=== PATIENT | male | born 1940 | race Caucasian/White ===

== ENCOUNTER 2019-04-26 16:22 | Observation (INO) | payer OTHER, MEDICARE ==
[2019-04-26] MEDS ORDERED: Ticagrelor 90 MG Tab PO ONE (16:24)
[2019-04-26] MEDS ORDERED: Famotidine 20 MG/2 ML SDV IVPUSH ONE (16:24)
[2019-04-26] MEDS ORDERED: Aspirin 81 MG Tab.Chew CHEW ONE (16:24)
--- NOTE | 2019-04-26 16:24 | EDM.PDOC ---
ED HPI GENERAL MEDICAL PROBLEM - General Chief Complaint: Respiratory Problem Stated Complaint: shortness of breath Time Seen by Provider: 04/26/19 16:24 Source of Information: Reports: Patient, Family (), Old Records ([facility] chart/EMR), Other ([facility] EMR) History Limitations: Reports: No Limitations - History of Present Illness INITIAL COMMENTS - FREE TEXT/NARRATIVE: The patient was brought to the emergency room via private automobile by his for evaluation of sudden onset dyspareunia, increasing dependent edema, and dizziness with symptoms starting about one hour prior to arrival. Note that the patient has had some recent problems with bradycardia with decrease of his Lopressor and losartan therapy by his regular provider about 4 days ago. The patient denies any chest pain/pressure, heart flutter, orthostasis, orthopnea, diaphoresis, paresthesias, recent decreased exercise tolerance, or any other anginal-type symptoms. No recent history of abdominal pain, heartburn, nausea, diarrhea, melena, gross hematochezia, or any food intolerance, including fatty foods, etc.. He denies any gross hematuria, colic, or other UTI symptoms. The patient also denies any recent fever, cough, wheezing, dyspnea, etc.. He denies any specific pain or discomfort. Onset: Today, Sudden Onset Date: 04/26/19 Onset Time: 15:00 Duration: Constant Location: Reports: Other (no pain) Quality: Reports: Same as Previous Episode Severity: Moderate Improves with: Reports: Rest Worsens with: Reports: Movement (activity) Context: Denies: Trauma Associated Symptoms: Reports: Shortness of Breath. 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 below) (none) - Related Data Allergies Allergy/AdvReac Type Severity Reaction Status Date / Time metronidazole [From Flagyl] Allergy Delusions Verified 04/26/19 16:46 Home Meds: Home Meds Rosuvastatin [Crestor] 10 mg PO BEDTIME 07/20/15 [History] Terazosin HCl [Terazosin] 5 mg PO BEDTIME 07/20/15 [History] amLODIPine [Norvasc] 10 mg PO DAILY 02/25/16 [History] Aspirin [Halfprin] 81 mg PO DAILY 04/26/19 [History] Cholecalciferol (Vitamin D3) [Vitamin D3] 1,000 units PO BEDTIME 04/26/19 [ History] Gabapentin [Neurontin] 300 mg PO BEDTIME 04/26/19 [History] LORazepam [Ativan] 1 mg PO Q12HR PRN 04/26/19 [History] Losartan [Cozaar] 1 tab PO DAILY 04/26/19 [History] Metoprolol Succinate [Toprol Xl] 50 mg PO DAILY 04/26/19 [History] Past Medical History HEENT History: Reports: Cataract, Hard of Hearing, Impaired Vision, Otitis Media , Other (See Below). Denies: Allergic Rhinitis, Glaucoma, Macular Degeneration , Retinal Detachment Other HEENT History: frequent ear infections as a child with no PE tubes required. Chronic vertigo. Presbycusis with bilateral hearing aid therapy. He wears glasses. senile nuclear sclerosis. Cardiovascular History: Reports: Arrhythmia, Blood Clots/VTE/DVT, Cardiomyopathy , Heart Failure, Heart Murmur, High Cholesterol, Hypertension, PVD, Other (See Below). Denies: Afib, Aneurysm, Bypass, CAD, HI, Pacemaker, PTCA, Syncope Other Cardiovascular History: grade 1 diastolic dysfunction with mild left atrial enlargement and minimal diffuse disease; History of rheumatic fever at age 13 with previous cardiac murmur, which has since resolved. First-degree AV block, sinus arrhythmia,complete right bundle branch block, PACs, PVCs, and quadrigeminy. Carotid occlusive disease requiring surgery as below. distant history of DVT of the left subclavian vein in the 1970s secondary to a PICC line at that time. Respiratory History: Reports: Bronchitis, Recurrent, COPD, Intubation, Previous , Pulmonary Fibrosis. Denies: Asthma, Intubation, Difficult, PE, Pneumothorax, Sleep Apnea, TB Gastrointestinal History: Reports: Cholelithiasis, Colon Polyp, Diverticulosis, GERD, Irritable Bowel Syndrome, Other (See Below). Denies: Celiac Disease, Chronic Constipation, Chronic Diarrhea, GI Bleed, Hepatitis, Hiatal Hernia, Inflammatory Bowel Disease, Jaundice, Pancreatitis, PUD Other Gastrointestinal History: fatty liver secondary to hyperlipidemia. Genitourinary History: Reports: BPH, Chronic Renal Insuffiency, Other (See Below ). 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 Erectile dysfunction. Hermatospermia. renal cysts. Musculoskeletal History: Reports: Arthritis, Back Pain, Chronic, Fracture, Gout , Neck Pain, Chronic, Osteoarthritis, Other (See Below). Denies: Fibromyalgia, Osteoporosis, RA, SLE Other Musculoskeletal History: Genu varum. L5 compression fracture. Neurological History: Reports: Neuropathy, Peripheral, Vertigo, Other (See Below ). Denies: Cerebral Aneurysms, Concussion, CVA, Head Trauma, Migraines, MS, Parkinson's, Seizure, TIA Other Neuro History: polyneuropathy and radiculopathy initially diagnosed on 21/01. He denies previous history of TIA despite our medical records. Psychiatric History: Reports: Anxiety, Depression. Denies: Abuse, Victim of, ADD, ADHD, Addiction, Alzheimers Disease, Dementia, Psych Hospitalization(s), PTSD, Suicide Attempt, Suicidal Ideation Endocrine/Metabolic History: Reports: Obesity/BMI 30+, Vitamin D Deficiency. Denies: Diabetes, Type I, Diabetes, Type II, Diabetes Mellitus, Type 3c, Hypothyroidism, IDDM Hematologic History: Denies: Anemia, Blood Transfusion(s), Iron Deficiency Immunologic History: Denies: AIDS, HIV, SLE Oncologic (Cancer) History: Reports: Basal Cell Carcinoma, Renal, Other (See Below). Denies: Colon, Hodgkin's Lymphoma, Lymphoma, Malignant Melanoma, Non- Hodgkin's Lymphoma, Prostate Other Oncologic History: Basal cell carcinoma excised from the left chin on 07/11 with additional multiple skin excisions as below of unknown type of skin cancer. Right-sided renal cancer with nephrectomy as below and no chemotherapy or radiation therapy required Dermatologic History: Reports: Other (See Below). Denies: Eczema, Psoriasis Other Dermatologic History: Skin cancer as above. - Infectious Disease History Infectious Disease History: Reports: Chicken Pox, Mumps, Rheumatic Fever (at age 13), Scarlet Fever. Denies: C-Difficile, Meningitis, Mononucleosis, MRSA, Pertussis (Whooping Cough), Rubella, Shingles, TB, VRE - Past Surgical History Head Surgeries/Procedures: Reports: None HEENT Surgical History: Reports: Adenoidectomy, Oral Surgery, Tonsillectomy, Other (See Below). Denies: Cataract Surgery, Eye Surgery, Laser Surgery, LASIK , Myringotomy w Tube(s), Naso-Sinus Surgery Other HEENT Surgeries/Procedures: tonsillectomy and adenoidectomy at age 17. [place] teeth extraction4 at age 61. Cardiovascular Surgical History: Reports: Carotid Endarterectomy, Other (See Below). Denies: Varicose Other Cardiovascular Surgeries/Procedures: left carotid endarterectomy on 1999. Respiratory Surgical History: Reports: None. Denies: Thoracentesis GI Surgical History: Reports: Appendectomy, Cholecystectomy, Colon, Colonoscopy , Hernia, Abdominal, Hernia Repair/Other, Polypectomy, Other (See Below). Denies: EGD Other GI Surgeries/Procedures: last colonoscopy on 08/10/17 with excision of 3 polyps from the transverse colon at that time. Previous colonoscopy on 04/10/03; ventral abdominal hernia/incisional hernia repair in the . Left hemicolectomy in the early secondary to diverticulosis with excision of multiple colonic polyps. Previous cholecystectomy in the . Extensive central abdominal hernia repair on 11/02/03. Appendectomy at age 19. patient denies previous EGD in spite of our medical records. Male Surgical History: Reports: Other (See Below). Denies: Circumcision, TURP-Transurethral Resection of Prostate, Vasectomy Other Male Surgeries/Procedures: Cystoscopy on 05/06/11. Right-sided nephrectomy secondary to renal cancer on 03/31/16. Endocrine Surgical History: Reports: None Neurological Surgical History: Reports: None. Denies: C-Spine, Discectomy, Laminectomy, Lumbar Spine, Sacral Spine, Spinal Fusion, Thoracic Spine, Vertebroplasty Musculoskeletal Surgical History: Reports: Arthroscopic Knee, Other (See Below) . Denies: Carpal Tunnel, Ganglion Cyst, Joint Replacement, ORIF, Shoulder Surgery Other Musculoskeletal Surgeries/Procedures:: Left knee arthroscopic evaluation in 1999. Oncologic Surgical History: Reports: None Dermatological Surgical History: Reports: Skin Biopsy, Other (See Below) Other Dermatological Surgeries/Procedures: Mohs procedure from the facial region on 06/03/17 and multiple skin incisions between February and May 2017. Additional excision of basal cell carcinoma as above. - Past Imaging History Past Imaging History: Reports: Angiography (possible carotid angiogram on 1999. Heart catheterization in 1982.), Cardiac Echo (08/05/15 with ejection fraction of 6065 percent and findings as above.), CAT Scan (CT of the abdomen and pelvis on multiple occasions with last evaluation on 09/26/18. CT of the head and C-spine on 05/19/16. CT of the chest on 03/03/16.), Holter Monitor (April 2019), MRI (lumbar region on 01/26/03.), PFT (10/10/03), Stress Testing (last Cardiolite stress test on 09/09/15 was negative with ejection fraction of 59%. Previous Cardiolite stress test on 01/25/04 with decreased ejection fraction of 46 %.), Ultrasound (renal ultrasound on 08/14/08 and 05/25/07. abdominal ultrasound on 03/13/03.), Other (See Below) (arterial Doppler studies of the lower extremities on 01/26/03. EMG and nerve conduction studies of the legs bilaterally on 03/23/03.) Social & Family History - Family History HEENT: Reports: None. Denies: Glaucoma, Macular Degeneration, Retinal Detachment Cardiac: Reports: Bypass, CAD, High Cholesterol, HI, Other (See Below). Denies : Afib, Arrhythmia, Blood Clots/VTE/DVT, Heart Failure, Heart Murmur, Hypertension, Pacemaker, PVD/COD Other Cardiac Family History: father with fatal HI at age 74. Paternal uncle with possible fatal HI in his 80s. Maternal uncles 2 with possible fatal MIs in her 70s.hyperlipidemia and daughter and father. Brother with HI in his 70s with four-vessel CABG Respiratory: Denies: Asthma, COPD, PE, Pneumothorax, Sleep Apnea GI: Reports: Other (See Below). Denies: Celiac Disease, Colon Polyps, GERD, GI bleed, Inflammatory Bowel Disease, Irritable Bowel Syndrome, PUD Other GI Family History: daughter at 8 days of age secondary to transposition of her internal organs. : Reports: None. Denies: Dialysis, Renal Calculus, Renal Disease/ Insufficiency Musculoskeletal: Reports: None. Denies: Arthritis, Gout, RA, SLE Neurological: Reports: Parkinson's. Denies: Alzheimers Disease, Cerebral Aneurysms, CVA, Dementia, Migraines, Neuropathy, Peripheral, Seizure, TIA, Vertigo, Other (See Below) Other Neurological Family History: brother with Parkinson's disease Endocrine/Metabolic: Reports: Diabetes, type II, Other (See Below) Other Endocrine/Metabolic Family History: maternal grandmother with IDDM. Oncologic: Reports: Breast, Other (See Below) Other Oncologic Family History: mother with fatal breast versus stomach cancer at age 69. Sister with the Alia cancer in her 60s fatal at age 65. - Tobacco Use Smoking Status *Q: Former Smoker Tobacco Use Within Last Twelve Months: No Years of Tobacco use: 39 Packs/Tins Daily: 1.5 Packs/Tins Daily Comment: smoked between ages 20 and 59 with maximum use of 2 packs per day. Used Tobacco, but Quit: Yes Smoking Cessation Information Provided To Patient: No Second Hand Smoke Exposure: No Second Hand Smoke Education Provided: No - Caffeine Use Caffeine Use: Reports: Soda (1 soda per day). Denies: Coffee, Energy Drinks, Tea - Alcohol Use Alcohol Use History: Yes Days Per Week of Alcohol Use: 5 Number of Drinks Per Day: 3 Number of Drinks Per Day Comment: usually beer. No previous DWIs, problems with alcohol abuse, etc. Total Drinks Per Week: 15 Alcohol Use in Last Twelve Months: Yes - Recreational Drug Use Recreational Drug Use: No Drug Use in Last 12 Months: No Recreational Drug Type: Denies: Amphetamines (Speed), Cocaine, Heroin, Inhalants (Glues, Solvents, Aerosols), LSD (Acid), Marijuana/Hashish, Methamphetamine, Morphine, Oxycodone - Living Situation & Occupation Living situation: Reports: (1960. 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 ED EXAM, GENERAL - Physical Exam Exam: See Below Exam Limited By: No Limitations General Appearance: Alert, WD/WN, No Apparent Distress, Anxious (mild to moderate) Eye Exam: Bilateral Eye: EOMI, Normal Fundi, Normal Inspection (no nystagmus. Patient does not have his glasses.), PERRL Ears: Normal External Exam, Normal TMs, Hearing Loss (moderate bilateral presbycusis with patient not having his hearing aids). No: Hearing Grossly Normal Nose: Normal Inspection, Normal Mucosa, No Blood Throat/Mouth: Normal Inspection, Normal Lips, Normal Teeth, Normal Gums, Normal Oropharynx, Normal Voice, No Airway Compromise. No: Dysphagia, Perioral Cyanosis Head: Atraumatic, Normocephalic. No: Facial Swelling, Facial Tenderness Neck: Supple, Non-Tender, Full Range of Motion, Carotid Bruit (left-sided neck scar from carotid endarterectomy with mild bilateral carotid bruits). No: Lymphadenopathy (L), Lymphadenopathy (R), Thyromegaly Respiratory/Chest: No Respiratory Distress, No Accessory Muscle Use, Chest Non- Tender, Rales (mild bilateral basilar). No: Pleural Rub, Retractions Cardiovascular: Normal Peripheral Pulses, Regular Rate, Rhythm, No Gallop, No JVD, No Murmur, No Rub. No: No Edema (dependent edema as below), Gallop/S3, Gallop/S4, Friction Rub Peripheral Pulses: 2+: Radial (L), Radial (R), Dorsalis Pedis (L), Dorsalis Pedis (R) GI/Abdominal: Normal Bowel Sounds, Soft, Non-Tender, No Organomegaly, No Distention, No Abnormal Bruit, No Mass, Other (obese). No: Guarding (Male) Exam: Deferred Rectal (Males) Exam: Deferred Back Exam: Normal Inspection, Full Range of Motion, Other (mild kyphosis). No: CVA Tenderness (L), CVA Tenderness (R), Muscle Spasm Extremities: Normal Range of Motion, Non-Tender, Normal Capillary Refill, Pedal Edema (trace to +1 bilateral pedal/pretibial edema). No: No Pedal Edema, Micky' s Sign Neurological: Alert, Oriented, CN II-XII Intact, Normal Cognition, Normal Gait, Normal Reflexes (negative Babinski's), No Motor/Sensory Deficits Psychiatric: Anxious (moderate). No: Depressed Mood Skin Exam: Warm, Dry, Intact, Normal Color, No Rash. No: Diaphoretic, Wound/ Incision Lymphatic: No Adenopathy EKG INTERPRETATION EKG Date: 04/26/19 Time: 16:27 Rhythm: NSR Rate (Beats/Min): 64 [place]: Normal (neutral cardiac axis) P-Wave: Present QRS: RBBB (QRS interval 0.15 seconds with T-wave inversion in lead V1) ST-T: Normal QT: Normal KS/PQ Interval: 0.22 seconds resenting a first degree AV block Comparison: No Change (since 02/25/16) EKG Interpretation Comments: 1. no acute ischemic changes 2. complete right bundle branch block 3. First-degree AV block Course - Vital Signs Last Recorded V/S: Last Vital Signs Temp 37.1 C 04/26/19 16:25 Pulse 65 04/26/19 18:06 Resp 15 04/26/19 18:06 BP 146/73 H 04/26/19 18:06 Pulse Ox 99 04/26/19 18:06 Vital Signs - 24 hr 04/26/19 04/26/19 04/26/19 16:25 16:55 17:05 Temperature [ 37.1 C Oral] Pulse, 64 66 64 Peripheral [ Left Pulse Oximetry] Respiratory 16 16 16 Rate Blood Pressure 167/66 H 136/76 125/66 [Right Upper Arm] O2 Sat by Pulse 98 96 96 Oximetry 04/26/19 04/26/19 04/26/19 17:23 17:35 17:50 Temperature [ Oral] Pulse, 68 65 63 Peripheral [ Left Pulse Oximetry] Respiratory 14 15 16 Rate Blood Pressure 126/80 137/68 123/97 H [Right Upper Arm] O2 Sat by Pulse 98 99 99 Oximetry 04/26/19 18:06 Temperature [ Oral] Pulse, 65 Peripheral [ Left Pulse Oximetry] Respiratory 15 Rate Blood Pressure 146/73 H [Right Upper Arm] O2 Sat by Pulse 99 Oximetry - Orders/Labs/Meds Orders: Active Orders 24 hr Category Date Time Status Cardiac Monitoring [RC] . DIRECTED Care 04/26/19 16:24 Active EKG Documentation Completion [RC] ASDIRECTED Care 04/26/19 16:24 Active Oxygen Therapy, ED [RC] PRN Care 04/26/19 16:24 Active Peripheral IV Care [RC] . DIRECTED Care 04/26/19 16:24 Active Pulse Oximetry [RC] CONTINUOUS Care 04/26/19 16:24 Active Up With Assistance [RC] PFP Care 04/26/19 16:24 Active Vital Signs [RC] PFP Care 04/26/19 16:24 Active Nothing per Oral Now Diet [DIET] Diet 04/26/19 Breakfast Active Chest 1V Frontal [CR] Stat Exams 04/26/19 16:24 Taken CULTURE URINE [RM] Routine Lab 04/26/19 16:50 Received Sodium Chloride 0.9% [Saline Flush] Med 04/26/19 16:24 Active 10 ml FLUSH ASDIRECTED PRN Obtain Past Medical Record [OM.PC] Urgent Oth 04/26/19 16:24 Active Peripheral IV Insertion Adult [OM.PC] Stat Oth 04/26/19 16:24 Ordered Resuscitation Status Stat Resus Stat 04/26/19 16:24 Ordered Medication Orders Sodium Chloride (Saline Flush) 10 ml FLUSH ASDIRECTED PRN PRN Reason: Keep Vein Open Last Admin: 04/26/19 16:58 Dose: 10 ml Labs: Laboratory Tests 04/26/19 04/26/19 04/26/19 Range/Units 14:46 16:46 16:46 WBC 10.7 H (4.0-10.2) K/uL RBC 5.09 (4.33-5.41) M/uL Hgb 16.3 (13.1-16.8) g/dL Hct 47.2 (39.0-49.0) % MCV 92.7 D (84.0-98.0) fL MCH 32.0 (28.2-33.3) pg MCHC 34.5 (31.7-36.0) g/dL RDW 13.3 (11.2-14.1) % Plt Count 200 (150-350) K/uL Neut % (Auto) 68.8 (45.0-80.0) % Lymph % (Auto) 20.5 (10.0-50.0) % Ray % (Auto) 9.9 (2.0-14.0) % Eos % (Auto) 0.5 (0.0-5.0) % Baso % (Auto) 0.3 (0.0-2.0) % Neut # (Auto) 7.34 H (1.40-7.00) K/uL Lymph # (Auto) 2.18 (0.50-3.50) K/uL Ray # (Auto) 1.06 H (0.00-1.00) K/uL Eos # (Auto) 0.05 (0.00-0.50) K/uL Baso # (Auto) 0.03 (0.00-0.20) K/uL PT 11.0 (9.5-12.0) SEC INR 1.0 APTT 26.8 (21.0-31.3) SEC D-Dimer, Quantitative (0-400) ng/mL Sodium (136-145) mmol/L Potassium (3.5-5.1) mmol/L Chloride (98-107) mmol/L Carbon Dioxide (21.0-32.0) mmol/L BUN (7-18) mg/dL Creatinine (0.51-1.17) mg/dL Est Cr Clr Drug Dosing Estimated GFR (MDRD) mL/min Glucose (74-106) mg/dL Lactic Acid (0.4-2.0) mmol/L Uric Acid (2.6-7.2) mg/dL Calcium (8.5-10.1) mg/dL Magnesium (1.8-2.4) mg/dL Total Bilirubin 1.8 H (0.2-1.0) mg/dL Direct Bilirubin 0.3 H (0.0-0.2) mg/dL Indirect Bilirubin 1.5 mg/dL AST (15-37) U/L ALT (12-78) U/L Alkaline Phosphatase (46-116) IU/L Creatine Kinase (26-308) U/L Creatine Kinase Index (0.0-2.5) % CK-MB (CK-2) (0.00-3.60) ng/mL Troponin I (0.000-0.056) ng/mL NT-Pro-B Natriuret Pep (0-125) pg/mL Total Protein (6.4-8.2) g/dL Albumin (3.4-5.0) g/dL TSH, Ultra Sensitive (0.358-3.740) mIU/mL Specimen Type Urine Color Urine Appearance Urine pH (5.0-9.0) Ur Specific [place] (1.005-1.030) Urine Protein (NEGATIVE) mg/dL Urine Glucose (UA) (NEGATIVE) mg/dL Urine Ketones (NEGATIVE) mg/dL Urine Occult Blood (NEGATIVE) Urine Nitrite (NEGATIVE) Urine Bilirubin (NEGATIVE) Urine Urobilinogen (0.2-1.0) E.U./dL Ur Leukocyte Esterase (NEGATIVE) Urine RBC /HPF Urine WBC /HPF Ur Epithelial Cells /LPF Urine Bacteria (NONE TO FEW) /HPF 04/26/19 04/26/19 04/26/19 Range/Units 16:46 16:46 16:46 WBC (4.0-10.2) K/uL RBC (4.33-5.41) M/uL Hgb (13.1-16.8) g/dL Hct (39.0-49.0) % MCV (84.0-98.0) fL MCH (28.2-33.3) pg MCHC (31.7-36.0) g/dL RDW (11.2-14.1) % Plt Count (150-350) K/uL Neut % (Auto) (45.0-80.0) % Lymph % (Auto) (10.0-50.0) % Ray % (Auto) (2.0-14.0) % Eos % (Auto) (0.0-5.0) % Baso % (Auto) (0.0-2.0) % Neut # (Auto) (1.40-7.00) K/uL Lymph # (Auto) (0.50-3.50) K/uL Ray # (Auto) (0.00-1.00) K/uL Eos # (Auto) (0.00-0.50) K/uL Baso # (Auto) (0.00-0.20) K/uL PT (9.5-12.0) SEC INR APTT (21.0-31.3) SEC D-Dimer, Quantitative 661 H (0-400) ng/mL Sodium 137 (136-145) mmol/L Potassium 4.5 (3.5-5.1) mmol/L Chloride 101 (98-107) mmol/L Carbon Dioxide 24.0 (21.0-32.0) mmol/L BUN 24 H (7-18) mg/dL Creatinine 1.62 H (0.51-1.17) mg/dL Est Cr Clr Drug Dosing TNP Estimated GFR (MDRD) 41 mL/min Glucose 96 (74-106) mg/dL Lactic Acid 2.1 H (0.4-2.0) mmol/L Uric Acid 7.3 H (2.6-7.2) mg/dL Calcium 9.1 (8.5-10.1) mg/dL Magnesium 1.9 (1.8-2.4) mg/dL Total Bilirubin 1.8 H (0.2-1.0) mg/dL Direct Bilirubin (0.0-0.2) mg/dL Indirect Bilirubin mg/dL AST 20 (15-37) U/L ALT 28 (12-78) U/L Alkaline Phosphatase 71 (46-116) IU/L Creatine Kinase 72 (26-308) U/L Creatine Kinase Index 1.7 (0.0-2.5) % CK-MB (CK-2) 1.20 (0.00-3.60) ng/mL Troponin I 0.008 (0.000-0.056) ng/mL NT-Pro-B Natriuret Pep 996 H (0-125) pg/mL Total Protein 7.3 (6.4-8.2) g/dL Albumin 4.0 (3.4-5.0) g/dL TSH, Ultra Sensitive 2.055 (0.358-3.740) mIU/mL Specimen Type Urine Color Urine Appearance Urine pH (5.0-9.0) Ur Specific [place] (1.005-1.030) Urine Protein (NEGATIVE) mg/dL Urine Glucose (UA) (NEGATIVE) mg/dL Urine Ketones (NEGATIVE) mg/dL Urine Occult Blood (NEGATIVE) Urine Nitrite (NEGATIVE) Urine Bilirubin (NEGATIVE) Urine Urobilinogen (0.2-1.0) E.U./dL Ur Leukocyte Esterase (NEGATIVE) Urine RBC /HPF Urine WBC /HPF Ur Epithelial Cells /LPF Urine Bacteria (NONE TO FEW) /HPF 04/26/19 Range/Units 16:50 WBC (4.0-10.2) K/uL RBC (4.33-5.41) M/uL Hgb (13.1-16.8) g/dL Hct (39.0-49.0) % MCV (84.0-98.0) fL MCH (28.2-33.3) pg MCHC (31.7-36.0) g/dL RDW (11.2-14.1) % Plt Count (150-350) K/uL Neut % (Auto) (45.0-80.0) % Lymph % (Auto) (10.0-50.0) % Ray % (Auto) (2.0-14.0) % Eos % (Auto) (0.0-5.0) % Baso % (Auto) (0.0-2.0) % Neut # (Auto) (1.40-7.00) K/uL Lymph # (Auto) (0.50-3.50) K/uL Ray # (Auto) (0.00-1.00) K/uL Eos # (Auto) (0.00-0.50) K/uL Baso # (Auto) (0.00-0.20) K/uL PT (9.5-12.0) SEC INR APTT (21.0-31.3) SEC D-Dimer, Quantitative (0-400) ng/mL Sodium (136-145) mmol/L Potassium (3.5-5.1) mmol/L Chloride (98-107) mmol/L Carbon Dioxide (21.0-32.0) mmol/L BUN (7-18) mg/dL Creatinine (0.51-1.17) mg/dL Est Cr Clr Drug Dosing Estimated GFR (MDRD) mL/min Glucose (74-106) mg/dL Lactic Acid (0.4-2.0) mmol/L Uric Acid (2.6-7.2) mg/dL Calcium (8.5-10.1) mg/dL Magnesium (1.8-2.4) mg/dL Total Bilirubin (0.2-1.0) mg/dL Direct Bilirubin (0.0-0.2) mg/dL Indirect Bilirubin mg/dL AST (15-37) U/L ALT (12-78) U/L Alkaline Phosphatase (46-116) IU/L Creatine Kinase (26-308) U/L Creatine Kinase Index (0.0-2.5) % CK-MB (CK-2) (0.00-3.60) ng/mL Troponin I (0.000-0.056) ng/mL NT-Pro-B Natriuret Pep (0-125) pg/mL Total Protein (6.4-8.2) g/dL Albumin (3.4-5.0) g/dL TSH, Ultra Sensitive (0.358-3.740) mIU/mL Specimen Type Urincc Urine Color Yellow Urine Appearance Clear Urine pH 5.5 (5.0-9.0) Ur Specific [place] <= 1.005 (1.005-1.030) Urine Protein Negative (NEGATIVE) mg/dL Urine Glucose (UA) Negative (NEGATIVE) mg/dL Urine Ketones Negative (NEGATIVE) mg/dL Urine Occult Blood Negative (NEGATIVE) Urine Nitrite Negative (NEGATIVE) Urine Bilirubin Negative (NEGATIVE) Urine Urobilinogen 0.2 (0.2-1.0) E.U./dL Ur Leukocyte Esterase Negative (NEGATIVE) Urine RBC 0-5 /HPF Urine WBC 0-5 /HPF Ur Epithelial Cells Rare /LPF Urine Bacteria Rare (NONE TO FEW) /HPF urine specimen set up for culture and sensitivity Meds: Medications Generic Name Dose Route Start Last Admin Trade Name Freq PRN Reason Stop Dose Admin Sodium Chloride 10 ml 04/26/19 16:24 04/26/19 16:58 Saline Flush FLUSH 10 ml ASDIRECTED PRN Administration Keep Vein Open Discontinued Medications Generic Name Dose Route Start Last Admin Trade Name Freq PRN Reason Stop Dose Admin Aspirin 324 mg 04/26/19 16:24 04/26/19 16:48 Aspirin CHEW 04/26/19 16:25 324 mg ONETIME ONE Administration Famotidine 40 mg 04/26/19 16:24 04/26/19 16:57 Pepcid IVPUSH 04/26/19 16:25 40 mg ONETIME ONE Administration Ticagrelor 180 mg 04/26/19 16:24 04/26/19 16:49 Brilinta PO 04/26/19 16:25 180 mg ONETIME ONE Administration - Radiology Interpretation Free Text/Narrative:: 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 chest x-ray, portable, shows moderate to severe cardiomegaly with mild centralized CHF. Moderate COPD changes with no pulmonary infiltrates, pneumothorax, etc. 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) Qualifiers: COPD type: emphysema Emphysema type: panlobular Qualified Code(s): J43.1 - Panlobular emphysema Hypertension Qualifiers: Hypertension type: essential hypertension Qualified Code(s): I10 - Essential ( primary) hypertension Hyperlipidemia Qualifiers: Hyperlipidemia type: unspecified Qualified Code(s): E78.5 - Hyperlipidemia, unspecified Osteoarthritis Qualifiers: Osteoarthritis location: multiple joints Osteoarthritis type: primary Qualified Code(s): M15.0 - Primary generalized (osteo)arthritis - Discharge Information *PRESCRIPTION DRUG MONITORING PROGRAM REVIEWED*: Not Applicable *COPY OF PRESCRIPTION DRUG MONITORING REPORT IN PATIENT MELISSA: Not Applicable Referrals: Venessa Briones PA [Ordering Only Provider] - Forms: ED Department Discharge Care Plan Goals: See plan. - Problem List & Annotations (1) CHF (congestive heart failure) SNOMED Code(s): 16724053 Code(s): I50.9 - HEART FAILURE, UNSPECIFIED Status: Acute Priority: High Current Visit: Yes Onset Date: 04/26/19 Annotation/Comment:: initiate IV Lasix therapy. Previous echocardiogram on 08/05/15 did show improved cardiac function. Cardiology consultation depending on his clinical course. Initiate standard rule out HI orders with chest pain protocol initiated on patient's arrival to the emergency room. Patient is chest pain free, including prior to arrival. Echocardiogram on an outpatient basis. Note previous history of significant cardiac arrhythmia as above with recent Holter monitor study, which was completed about a couple of weeks ago, with results still pending. Qualifiers: Heart failure type: combined systolic and diastolic Heart failure chronicity: acute on chronic Qualified Code(s): I50.43 - Acute on chronic combined systolic (congestive) and diastolic (congestive) heart failure (2) COPD (chronic obstructive pulmonary disease) SNOMED Code(s): 31028302 Code(s): J44.9 - CHRONIC OBSTRUCTIVE PULMONARY DISEASE, UNSPECIFIED Status : Chronic Priority: Medium Current Visit: Yes Annotation/Comment:: no recent fever or bronchitic type symptoms. Patient is not using any therapy for his COPD at this time. No previous history of tobacco use. He may benefit from PFTs. Note minimal leukocytosis likely secondary to stress reaction. Qualifiers: COPD type: emphysema Emphysema type: panlobular Qualified Code(s): J43.1 - Panlobular emphysema (3) D-dimer, elevated SNOMED Code(s): 721873172 Code(s): R79.89 - OTHER SPECIFIED ABNORMAL FINDINGS OF BLOOD CHEMISTRY Status: Acute Priority: High Current Visit: Yes Onset Date: 04/26/19 Annotation/Comment:: Distant previous history of DVT as above. Secondary to recent protocol guidelines in the literature recommending not performing CTAs of the chest with d-dimer less than 1000 and patient's renal insufficiency this evaluation will not be performed at this time. Consider venous Doppler studies on a outpatient basis. No clinical evidence of DVT or PE. Low-dose subcutaneous Lovenox will be initiated. (4) Hyperbilirubinemia SNOMED Code(s): 99655274 Code(s): E80.6 - OTHER DISORDERS OF BILIRUBIN METABOLISM Status: Acute Priority: Medium Current Visit: Yes Onset Date: 04/26/19 Annotation/ Comment:: direct and indirect bilirubin still pending. (5) Hyperlipidemia SNOMED Code(s): 89194284 Code(s): E78.5 - HYPERLIPIDEMIA, UNSPECIFIED Status: Chronic Priority: Medium Current Visit: Yes Annotation/Comment:: lipid panel and glycosylated hemoglobin in the a.m. Qualifiers: Hyperlipidemia type: unspecified Qualified Code(s): E78.5 - Hyperlipidemia , unspecified (6) Hypertension SNOMED Code(s): 68525380 Code(s): I10 - ESSENTIAL (PRIMARY) HYPERTENSION Status: Chronic Priority : Medium Current Visit: Yes Annotation/Comment:: stable blood pressures in the emergency room. Note recent medication adjustment as above. Qualifiers: Hypertension type: essential hypertension Qualified Code(s): I10 - Essential (primary) hypertension (7) Lactic acid increased SNOMED Code(s): 99563934 Code(s): E87.2 - ACIDOSIS Status: Acute Priority: Medium Current Visit : Yes Onset Date: 04/26/19 Annotation/Comment:: mildly elevated. Lactic acid level with next set of cardiac enzymes. (8) Osteoarthritis SNOMED Code(s): 228888219 Code(s): M19.90 - UNSPECIFIED OSTEOARTHRITIS, UNSPECIFIED SITE Status: Chronic Priority: Medium Current Visit: Yes Annotation/Comment:: stable by history with additional history of hyperuricemia and mildly elevated uric acid level today. Qualifiers: Osteoarthritis location: multiple joints Osteoarthritis type: primary Qualified Code(s): M15.0 - Primary generalized (osteo)arthritis (9) Renal insufficiency SNOMED Code(s): 901727275, 490974140 Code(s): N28.9 - DISORDER OF KIDNEY AND URETER, UNSPECIFIED Status: Chronic Priority: Medium Current Visit: Yes Annotation/Comment:: note status post nephrectomy secondary to renal cancer as above. Continue to observe closely secondary to IV Lasix therapy. - Problem List Review Problem List Initiated/Reviewed/Updated: Yes - My Orders Last 24 Hours: My Active Orders 04/26/19 16:24 Cardiac Monitoring [RC] . DIRECTED EKG Documentation Completion [RC] ASDIRECTED Oxygen Therapy, ED [RC] PRN Peripheral IV Care [RC] . DIRECTED Pulse Oximetry [RC] CONTINUOUS Up With Assistance [RC] PFP Vital Signs [RC] PFP Chest 1V Frontal [CR] Stat Sodium Chloride 0.9% [Saline Flush] 10 ml FLUSH ASDIRECTED PRN Obtain Past Medical Record [OM.PC] Urgent Peripheral IV Insertion Adult [OM.PC] Stat Resuscitation Status Stat 04/26/19 16:50 CULTURE URINE [RM] Routine 04/26/19 Breakfast Nothing per Oral Now Diet [DIET] - Assessment/Plan Admission H&P: Please use this note as an admission H&P Last 24 Hours: My Active Orders 04/26/19 16:24 Cardiac Monitoring [RC] . DIRECTED EKG Documentation Completion [RC] ASDIRECTED Oxygen Therapy, ED [RC] PRN Peripheral IV Care [RC] . DIRECTED Pulse Oximetry [RC] CONTINUOUS Up With Assistance [RC] PFP Vital Signs [RC] PFP Chest 1V Frontal [CR] Stat Sodium Chloride 0.9% [Saline Flush] 10 ml FLUSH ASDIRECTED PRN Obtain Past Medical Record [OM.PC] Urgent Peripheral IV Insertion Adult [OM.PC] Stat Resuscitation Status Stat 04/26/19 16:50 CULTURE URINE [RM] Routine 04/26/19 Breakfast Nothing per Oral Now Diet [DIET] Assessment:: as above Plan: as above. Extensive precautions were given to the patient and his , who are in agreement with the treatment plan. The patient's condition is stable enough for observation status and general supervision.
[2019-04-26] MEDS: Sodium Chloride 0.9% 10 ML Syringe FLUSH PRN ×2 (16:58→19:57)
[2019-04-26 17:35] LABS: CHLORIDE,CL 101 mmol/L (98-107); SODIUM,NA 137 mmol/L (136-145)
[2019-04-26] MEDS ORDERED: LORazepam 1 MG Tab PO PRN (18:44)
[2019-04-26] MEDS ORDERED: Acetaminophen 325 MG Tab PO PRN (18:46)
[2019-04-26] MEDS ORDERED: Sodium Chloride 0.9% 10 ML Syringe FLUSH PRN (18:46)
[2019-04-26] MEDS ORDERED: Enoxaparin 60 MG/0.6 ML Syringe SUBCUT SCH (19:00)
[2019-04-26] MEDS: Furosemide 40 MG/4 ML VIAL IVPUSH SCH (19:55)
[2019-04-26] MEDS ORDERED: Gabapentin 300 MG Cap PO SCH (20:00)
[2019-04-26] MEDS ORDERED: Terazosin 5 MG Cap PO SCH (20:00)
[2019-04-26] MEDS ORDERED: Rosuvastatin 10 MG Tab PO SCH (20:00)
[2019-04-26] MEDS ORDERED: Cholecalciferol (Vitamin D3) 25 MCG Tab PO SCH (20:00)
[2019-04-27] MEDS: Furosemide 40 MG/4 ML VIAL IVPUSH SCH (03:30)
[2019-04-27 07:36] LABS: HEMOGLOBIN A1C 5.8 % (4.3-5.7)
[2019-04-27] MEDS ORDERED: Losartan 50 MG Tab PO SCH ×2 (08:00)
[2019-04-27] MEDS ORDERED: Aspirin 81 MG Tab.EC PO SCH (08:00)
[2019-04-27] MEDS ORDERED: Potassium Chloride 20 MEQ Tab.ER PO SCH (08:00)
[2019-04-27] MEDS ORDERED: Metoprolol Succinate 50 MG Tab.ER PO SCH (08:00)
[2019-04-27] MEDS ORDERED: amLODIPine 5 MG Tab PO SCH (08:00)
[2019-04-27 08:13] VITALS: BP 125/70
--- NOTE | 2019-04-27 09:10 | PCM.DCSUM1 ---
Discharge Summary - Hospital Course HPI Initial Comments: See emergency room note/admission H&P Brief History: See emergency room note/admission H&P Diagnosis: Stroke: No Modified [place] Scale: No Symptoms at All Modified [place] Scale Score: 0 - Discharge Data Discharge Date: 04/27/19 Discharge Disposition: DC/Tfer to Acute Hospital 02 Condition: Good - Discharge Diagnosis/Problem(s) (1) Bradycardia SNOMED Code(s): 95163670 ICD Code: R00.1 - BRADYCARDIA, UNSPECIFIED Status: Acute Priority: High Current Visit: Yes Onset Date: 04/26/19 Problem Details: Severe bradycardia during this hospitalization, including frequent PVCs, occasional PACs, and occasional bigeminy with likely secondary CHF and hypotension. Telephone consultation at 08:[address] Tamayo, hospitalist at [facility], who does accept the patient or direct admission, with no further treatment recommendations given. Ambulance transfer with personal support worker accompany movement. Cardiology consultation by accepting providers. Toprol-XL and Norvasc have been held and were not given during this hospitalization. Patient may be a candidate for a pacemaker depending on his clinical course. Note previously known cardiac arrhythmia including complete right bundle branch block, etc. (2) CHF (congestive heart failure) SNOMED Code(s): 54310605 ICD Code: I50.9 - HEART FAILURE, UNSPECIFIED Status: Acute Priority: High Current Visit: Yes Onset Date: 04/26/19 Problem Details: Note patient was somewhat hypotensive at 3 AM this morning with IV Lasix held at that time. Blood pressure much improved at time of discharge/transfer with stable clinical exam and no chest pain or anginal complaints. IV Lasix therapy had been initiated on admission with progressive BNP elevation this morning secondary to patient's mild worsening renal function with diuretic therapy. No significant CHF by clinical exam despite evidence of mild pleural effusion as per chest x-ray report as below. Patient's moderate to severe bradycardia is a contributing factor to his CHF. Previous echocardiogram on 08/05/15 did show improved cardiac function as per emergency room note. Cardiology consultation recommended for possible pacemaker placement. Negative workup for acute IA to this point. Chest pain protocol was initiated initiated on patient's arrival to the emergency room. Patient was chest pain free, including prior to arrival. Echocardiogram likely to be repeated by accepting providers. Note previous history of significant cardiac arrhythmia as per emergency room note with recent Holter monitor study, which was completed about a couple of weeks ago at [facility], however results are still pending including upon my review of [facility] [employer]. Qualifiers: Heart failure type: combined systolic and diastolic Heart failure chronicity: acute on chronic Qualified Code(s): I50.43 - Acute on chronic combined systolic (congestive) and diastolic (congestive) heart failure (3) D-dimer, elevated SNOMED Code(s): 136619565 ICD Code: R79.89 - OTHER SPECIFIED ABNORMAL FINDINGS OF BLOOD CHEMISTRY Status: Acute Priority: High Current Visit: Yes Onset Date: 04/26/19 Problem Details: D-dimer elevation improved this morning after low-dose Lovenox therapy as below. Distant previous history of DVT as per emergency room note. Secondary to recent protocol guidelines in the literature recommending not performing CTAs of the chest with d-dimer less than 1000 and patient's renal insufficiency this evaluation will not be performed at this time. Consider venous Doppler studies of the lower extremities by accepting providers. No clinical evidence of DVT or PE. Low-dose subcutaneous Lovenox was initiated on admission secondary to his renal insufficiency. (4) PVC's (premature ventricular contractions) SNOMED Code(s): 85995919 ICD Code: I49.3 - VENTRICULAR PREMATURE DEPOLARIZATION Status: Acute Priority: High Current Visit: Yes Problem Details: As above (5) COPD (chronic obstructive pulmonary disease) SNOMED Code(s): 35470162 ICD Code: J44.9 - CHRONIC OBSTRUCTIVE PULMONARY DISEASE, UNSPECIFIED Status : Chronic Priority: Medium Current Visit: Yes Problem Details: No recent fever or bronchitic type symptoms. Patient is not using any therapy for his COPD at this time. Note previous history of tobacco use. He may benefit from PFTs. Note minimal leukocytosis likely secondary to stress reaction which is stable at this time. Patient remains afebrile. Mild lactic acid elevation on admission has since normalized with no clinical evidence of sepsis. 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 No further interventions required. (7) Hyperlipidemia SNOMED Code(s): 77204907 ICD Code: E78.5 - HYPERLIPIDEMIA, UNSPECIFIED Status: Chronic Priority: Medium Current Visit: Yes Problem Details: Currently under therapy with excellent lipid panel and normal glycosylated hemoglobin this morning. Qualifiers: Hyperlipidemia type: unspecified Qualified Code(s): E78.5 - Hyperlipidemia , unspecified (8) Hypertension SNOMED Code(s): 01126030 ICD Code: I10 - ESSENTIAL (PRIMARY) HYPERTENSION Status: Chronic Priority : Medium Current Visit: Yes Problem Details: Patient somewhat hypotensive during this observation status secondary to his bradycardia and Lasix therapy. Blood pressures improved at time of transfer. Note multiple recent medication changes during this hospitalization, including holding his Toprol XL and Norvasc with increase of his Cozaar to a twice a day basis, which was to be started today and which should be beneficial for his mild CHF. Continue to observe his renal function closely secondary to this medication, however. Note recent medication adjustments by his regular provider a few days prior to admission secondary to patient's intermittent bradycardia as per emergency room note as above. Qualifiers: Hypertension type: essential hypertension Qualified Code(s): I10 - Essential (primary) hypertension (9) Lactic acid increased SNOMED Code(s): 22757559 ICD Code: E87.2 - ACIDOSIS Status: Acute Priority: Medium Current Visit : Yes Onset Date: 04/26/19 Problem Details: As above (10) Osteoarthritis SNOMED Code(s): 364314847 ICD Code: M19.90 - UNSPECIFIED OSTEOARTHRITIS, UNSPECIFIED SITE Status: Chronic Priority: Medium Current Visit: Yes Problem Details: Stable by history with additional history of hyperuricemia and mildly elevated uric acid level on admission. No history of gout attacks. Qualifiers: Osteoarthritis location: multiple joints Osteoarthritis type: primary Qualified Code(s): M15.0 - Primary generalized (osteo)arthritis (11) Renal insufficiency SNOMED Code(s): 366954244, 519083848 ICD Code: N28.9 - DISORDER OF KIDNEY AND URETER, UNSPECIFIED Status: Chronic Priority: Medium Current Visit: Yes Problem Details: Note mildly aggressive creatinine elevation this morning secondary to IV Lasix therapy, which was held earlier this morning as above. Recommend decreasing this therapy by accepting providers with nephrology consultation depending on his clinical course. Note status post nephrectomy secondary to renal cancer as per emergency room note. (12) Mixed anxiety depressive disorder SNOMED Code(s): 866914629 ICD Code: F41.8 - OTHER SPECIFIED ANXIETY DISORDERS Status: Chronic Priority: Medium Current Visit: Yes Problem Details: Persistent moderate anxiety with borderline depressive affect. He is not currently under any medical therapy and may benefit from counseling, medical therapy, etc. in the future depending on his clinical course. Continue to observe closely by accepting providers and his regular provider, Lin Briones PA-C, at the [facility] in [place]. Emotional support provided. - Patient Summary/Data Operative Procedure(s) Performed: None Complications: None Consults: None Labs Pending at D/C: Final urine culture and sensitivity results Recommended Follow-up Testing/Procedures: As above Planned Operative Procedure(s) after DC: As above Hospital Course: The patient was placed in observation status on telemetry with negative standard rule out IA orders as above. He continues to remain chest pain-free throughout this hospitalization. Note development of significant bradycardia as above requiring hospital transfer. Mild worsening renal function secondary to IV Lasix therapy. No complications. The patient, his , and son were extensively counseled concerning treatment during this hospitalization and planned further evaluations at [facility]. - Patient Instructions Diet: Fluid Restriction Diet, Other: Heart Healthy, diverticulosis Activity: No Strenuous Activities Driving: Do Not Drive Showering/Bathing: No Showering Notify Provider of: Increased Pain, Nausea and/or Vomiting Other/Special Instructions: Ambulance transfer with personal support worker accompaniment - Discharge Plan *PRESCRIPTION DRUG MONITORING PROGRAM REVIEWED*: Not Applicable *COPY OF PRESCRIPTION DRUG MONITORING REPORT IN PATIENT MELISSA: Not Applicable Home Medications: Home Meds Rosuvastatin [Crestor] 10 mg PO BEDTIME 07/20/15 [History] Terazosin HCl [Terazosin] 5 mg PO BEDTIME 07/20/15 [History] amLODIPine [Norvasc] 10 mg PO DAILY 02/25/16 [History] Aspirin [Halfprin] 81 mg PO DAILY 04/26/19 [History] Cholecalciferol (Vitamin D3) [Vitamin D3] 1,000 units PO BEDTIME 04/26/19 [ History] Gabapentin [Neurontin] 300 mg PO BEDTIME 04/26/19 [History] LORazepam [Ativan] 1 mg PO Q12HR PRN 04/26/19 [History] Losartan [Cozaar] 1 tab PO DAILY 04/26/19 [History] Metoprolol Succinate [Toprol Xl] 50 mg PO DAILY 04/26/19 [History] Oxygen Therapy Mode: Room Air Patient Handouts: Furosemide injection, Enoxaparin injection, Heart Failure, [id number] Forms: ED Department Discharge, Interfacility Transfer EMTALA Referrals: Venessa Briones PA [Ordering Only Provider] - - Discharge Summary/Plan Comment DC Time >30 min.: Yes Discharge Summary/Plan Comment: As above. Extensive precautions were given to the patient and his family, who are in agreement with the treatment plan. Ambulance transfer with personal support worker accompaniment as above.. - General Info Date of Service: 04/27/19 Admission Dx/Problem (Free Text: 1. CHF 2. Bradycardia Functional Status: Reports: Pain Controlled, Tolerating Diet, Ambulating, Urinating. Denies: New Symptoms, Incentive Spirometry Numeric/FACES Score: 0 - Review of Systems General: Reports: Fatigue (Stable chronic). Denies: Fever, Weakness, Malaise, Chills, Night Sweats, Appetite (Good) HEENT: Reports: No Symptoms. Denies: Ear Pain, Eye Pain, Headaches, Post Nasal Drip, Sinus Congestion, Sore Throat, Rhinitis, Visual Changes Pulmonary: Reports: Shortness of Breath (As below). Denies: Pleuritic Chest Pain, Cough, Sputum, Hemoptysis, Wheezing Cardiovascular: Reports: Dyspnea on Exertion (Minimal activity during this hospitalization), Lightheadedness. Denies: Chest Pain, Palpitations, Orthopnea , PND, Edema (Resolved dependent edema at transfer) Gastrointestinal: Reports: No Symptoms, Other (No bowel movement during this hospitalization). Denies: Abdominal Pain, Constipation, Decreased Appetite, Diarrhea, Difficulty Swallowing, Flatus, Hematochezia, Melena, Nausea, Vomiting Genitourinary: Reports: No Symptoms. Denies: Dysuria, Frequency, Burning, Pain , Urgency, Incontinence, Hematuria, Flank Pain Musculoskeletal: Reports: No Symptoms. Denies: Neck Pain, Shoulder Pain, Arm Pain, Leg Pain Skin: Reports: Bruising (Mild at Lovenox site) Neurological: Reports: Dizziness, Weakness (As above). Denies: Headache, Numbness, Paresthesia, Tingling Psychiatric: Reports: Depression, Anxiety. Denies: Confusion, Agitation, Cravings, Hallucinations - Patient Data Vitals - Most Recent: Last Vital Signs Temp 36.9 C 04/27/19 03:46 Pulse 57 L 04/27/19 03:46 Resp 16 04/27/19 03:46 BP 125/70 04/27/19 08:12 Pulse Ox 94 L 04/27/19 03:46 Vital Signs - 24 hr 04/26/19 04/26/19 04/26/19 16:25 16:55 17:05 Temperature [ 37.1 C Oral] Temperature [ Temporal] Pulse, Peripheral [ Apical] Pulse, 64 66 64 Peripheral [ Left Pulse Oximetry] Respiratory 16 16 16 Rate Blood Pressure Blood Pressure 167/66 H 136/76 125/66 [Right Upper Arm] O2 Sat by Pulse 98 96 96 Oximetry 04/26/19 04/26/19 04/26/19 17:23 17:35 17:50 Temperature [ Oral] Temperature [ Temporal] Pulse, Peripheral [ Apical] Pulse, 68 65 63 Peripheral [ Left Pulse Oximetry] Respiratory 14 15 16 Rate Blood Pressure Blood Pressure 126/80 137/68 123/97 H [Right Upper Arm] O2 Sat by Pulse 98 99 99 Oximetry 04/26/19 04/26/19 04/26/19 18:06 18:46 19:53 Temperature [ 36.6 C Oral] Temperature [ Temporal] Pulse, Peripheral [ Apical] Pulse, 65 63 Peripheral [ Left Pulse Oximetry] Respiratory 15 17 Rate Blood Pressure 147/64 H Blood Pressure 146/73 H 147/64 H [Right Upper Arm] O2 Sat by Pulse 99 97 Oximetry 04/26/19 04/27/19 04/27/19 23:30 00:10 03:46 Temperature [ Oral] Temperature [ 36.5 C 36.9 C Temporal] Pulse, 40 L Peripheral [ Apical] Pulse, 57 L 57 L Peripheral [ Left Pulse Oximetry] Respiratory 20 16 Rate Blood Pressure Blood Pressure 98/58 L 100/68 87/45 L [Right Upper Arm] O2 Sat by Pulse 95 94 L Oximetry 04/27/19 08:12 Temperature [ Oral] Temperature [ Temporal] Pulse, Peripheral [ Apical] Pulse, Peripheral [ Left Pulse Oximetry] Respiratory Rate Blood Pressure 125/70 Blood Pressure [Right Upper Arm] O2 Sat by Pulse Oximetry Weight - Most Recent: 135.261 kg I&O - Last 24 hours: Intake & Output 04/26/19 04/27/19 04/27/19 22:59 06:59 14:59 Intake Total 550 Output Total 300 1825 Balance -300 -1275 Imaging Impressions - Last 24 hrs: monitoring engineer shows moderate to severe bradycardia including heart rates in the low 30s with average heart rates in the 40s to 50s. Occasional PACs, PVCs, sinus arrhythmia, and bigeminy. Chest x-ray, portable, from 04/26/19 shows moderate to severe cardiomegaly with mild centralized CHF. Moderate COPD changes with no pulmonary infiltrates, pneumothorax, etc. Lab Results - Last 24 hrs: Laboratory Results - last 24 hr 04/26/19 04/26/19 04/26/19 Range/Units 14:46 16:46 16:46 WBC 10.7 H (4.0-10.2) K/uL RBC 5.09 (4.33-5.41) M/uL Hgb 16.3 (13.1-16.8) g/dL Hct 47.2 (39.0-49.0) % MCV 92.7 D (84.0-98.0) fL MCH 32.0 (28.2-33.3) pg MCHC 34.5 (31.7-36.0) g/dL RDW 13.3 (11.2-14.1) % Plt Count 200 (150-350) K/uL Neut % (Auto) 68.8 (45.0-80.0) % Lymph % (Auto) 20.5 (10.0-50.0) % [place] % (Auto) 9.9 (2.0-14.0) % Eos % (Auto) 0.5 (0.0-5.0) % Baso % (Auto) 0.3 (0.0-2.0) % Neut # (Auto) 7.34 H (1.40-7.00) K/uL Lymph # (Auto) 2.18 (0.50-3.50) K/uL [place] # (Auto) 1.06 H (0.00-1.00) K/uL Eos # (Auto) 0.05 (0.00-0.50) K/uL Baso # (Auto) 0.03 (0.00-0.20) K/uL PT 11.0 (9.5-12.0) SEC INR 1.0 APTT 26.8 (21.0-31.3) SEC D-Dimer, Quantitative (0-400) ng/mL Sodium (136-145) mmol/L Potassium (3.5-5.1) mmol/L Chloride (98-107) mmol/L Carbon Dioxide (21.0-32.0) mmol/L BUN (7-18) mg/dL Creatinine (0.51-1.17) mg/dL Est Cr Clr Drug Dosing Estimated GFR (MDRD) mL/min Glucose (74-106) mg/dL Hemoglobin A1c (4.3-5.7) % Lactic Acid (0.4-2.0) mmol/L Uric Acid (2.6-7.2) mg/dL Calcium (8.5-10.1) mg/dL Magnesium (1.8-2.4) mg/dL Total Bilirubin 1.8 H (0.2-1.0) mg/dL Direct Bilirubin 0.3 H (0.0-0.2) mg/dL Indirect Bilirubin 1.5 mg/dL AST (15-37) U/L ALT (12-78) U/L Alkaline Phosphatase (46-116) IU/L Creatine Kinase (26-308) U/L Creatine Kinase Index (0.0-2.5) % CK-MB (CK-2) (0.00-3.60) ng/mL Troponin I (0.000-0.056) ng/mL NT-Pro-B Natriuret Pep (0-125) pg/mL Total Protein (6.4-8.2) g/dL Albumin (3.4-5.0) g/dL Triglycerides (30-150) mg/dL Cholesterol (100-200) mg/dL LDL Cholesterol, Calc (0-100) mg/dL HDL Cholesterol (40-60) mg/dL TSH, Ultra Sensitive (0.358-3.740) mIU/mL Specimen Type Urine Color Urine Appearance Urine pH (5.0-9.0) Ur Specific [place] (1.005-1.030) Urine Protein (NEGATIVE) mg/dL Urine Glucose (UA) (NEGATIVE) mg/dL Urine Ketones (NEGATIVE) mg/dL Urine Occult Blood (NEGATIVE) Urine Nitrite (NEGATIVE) Urine Bilirubin (NEGATIVE) Urine Urobilinogen (0.2-1.0) E.U./dL Ur Leukocyte Esterase (NEGATIVE) Urine RBC /HPF Urine WBC /HPF Ur Epithelial Cells /LPF Urine Bacteria (NONE TO FEW) /HPF 04/26/19 04/26/19 04/26/19 Range/Units 16:46 16:46 16:46 WBC (4.0-10.2) K/uL RBC (4.33-5.41) M/uL Hgb (13.1-16.8) g/dL Hct (39.0-49.0) % MCV (84.0-98.0) fL MCH (28.2-33.3) pg MCHC (31.7-36.0) g/dL RDW (11.2-14.1) % Plt Count (150-350) K/uL Neut % (Auto) (45.0-80.0) % Lymph % (Auto) (10.0-50.0) % [place] % (Auto) (2.0-14.0) % Eos % (Auto) (0.0-5.0) % Baso % (Auto) (0.0-2.0) % Neut # (Auto) (1.40-7.00) K/uL Lymph # (Auto) (0.50-3.50) K/uL [place] # (Auto) (0.00-1.00) K/uL Eos # (Auto) (0.00-0.50) K/uL Baso # (Auto) (0.00-0.20) K/uL PT (9.5-12.0) SEC INR APTT (21.0-31.3) SEC D-Dimer, Quantitative 661 H (0-400) ng/mL Sodium 137 (136-145) mmol/L Potassium 4.5 (3.5-5.1) mmol/L Chloride 101 (98-107) mmol/L Carbon Dioxide 24.0 (21.0-32.0) mmol/L BUN 24 H (7-18) mg/dL Creatinine 1.62 H (0.51-1.17) mg/dL Est Cr Clr Drug Dosing TNP Estimated GFR (MDRD) 41 mL/min Glucose 96 (74-106) mg/dL Hemoglobin A1c (4.3-5.7) % Lactic Acid 2.1 H (0.4-2.0) mmol/L Uric Acid 7.3 H (2.6-7.2) mg/dL Calcium 9.1 (8.5-10.1) mg/dL Magnesium 1.9 (1.8-2.4) mg/dL Total Bilirubin 1.8 H (0.2-1.0) mg/dL Direct Bilirubin (0.0-0.2) mg/dL Indirect Bilirubin mg/dL AST 20 (15-37) U/L ALT 28 (12-78) U/L Alkaline Phosphatase 71 (46-116) IU/L Creatine Kinase 72 (26-308) U/L Creatine Kinase Index 1.7 (0.0-2.5) % CK-MB (CK-2) 1.20 (0.00-3.60) ng/mL Troponin I 0.008 (0.000-0.056) ng/mL NT-Pro-B Natriuret Pep 996 H (0-125) pg/mL Total Protein 7.3 (6.4-8.2) g/dL Albumin 4.0 (3.4-5.0) g/dL Triglycerides (30-150) mg/dL Cholesterol (100-200) mg/dL LDL Cholesterol, Calc (0-100) mg/dL HDL Cholesterol (40-60) mg/dL TSH, Ultra Sensitive 2.055 (0.358-3.740) mIU/mL Specimen Type Urine Color Urine Appearance Urine pH (5.0-9.0) Ur Specific [place] (1.005-1.030) Urine Protein (NEGATIVE) mg/dL Urine Glucose (UA) (NEGATIVE) mg/dL Urine Ketones (NEGATIVE) mg/dL Urine Occult Blood (NEGATIVE) Urine Nitrite (NEGATIVE) Urine Bilirubin (NEGATIVE) Urine Urobilinogen (0.2-1.0) E.U./dL Ur Leukocyte Esterase (NEGATIVE) Urine RBC /HPF Urine WBC /HPF Ur Epithelial Cells /LPF Urine Bacteria (NONE TO FEW) /HPF 04/26/19 04/26/19 04/26/19 Range/Units 16:50 20:45 20:45 WBC (4.0-10.2) K/uL RBC (4.33-5.41) M/uL Hgb (13.1-16.8) g/dL Hct (39.0-49.0) % MCV (84.0-98.0) fL MCH (28.2-33.3) pg MCHC (31.7-36.0) g/dL RDW (11.2-14.1) % Plt Count (150-350) K/uL Neut % (Auto) (45.0-80.0) % Lymph % (Auto) (10.0-50.0) % [place] % (Auto) (2.0-14.0) % Eos % (Auto) (0.0-5.0) % Baso % (Auto) (0.0-2.0) % Neut # (Auto) (1.40-7.00) K/uL Lymph # (Auto) (0.50-3.50) K/uL [place] # (Auto) (0.00-1.00) K/uL Eos # (Auto) (0.00-0.50) K/uL Baso # (Auto) (0.00-0.20) K/uL PT (9.5-12.0) SEC INR APTT (21.0-31.3) SEC D-Dimer, Quantitative (0-400) ng/mL Sodium (136-145) mmol/L Potassium (3.5-5.1) mmol/L Chloride (98-107) mmol/L Carbon Dioxide (21.0-32.0) mmol/L BUN (7-18) mg/dL Creatinine (0.51-1.17) mg/dL Est Cr Clr Drug Dosing Estimated GFR (MDRD) mL/min Glucose (74-106) mg/dL Hemoglobin A1c (4.3-5.7) % Lactic Acid 1.3 (0.4-2.0) mmol/L Uric Acid (2.6-7.2) mg/dL Calcium (8.5-10.1) mg/dL Magnesium (1.8-2.4) mg/dL Total Bilirubin (0.2-1.0) mg/dL Direct Bilirubin (0.0-0.2) mg/dL Indirect Bilirubin mg/dL AST (15-37) U/L ALT (12-78) U/L Alkaline Phosphatase (46-116) IU/L Creatine Kinase 69 (26-308) U/L Creatine Kinase Index 1.6 (0.0-2.5) % CK-MB (CK-2) 1.10 (0.00-3.60) ng/mL Troponin I 0.001 (0.000-0.056) ng/mL NT-Pro-B Natriuret Pep (0-125) pg/mL Total Protein (6.4-8.2) g/dL Albumin (3.4-5.0) g/dL Triglycerides (30-150) mg/dL Cholesterol (100-200) mg/dL LDL Cholesterol, Calc (0-100) mg/dL HDL Cholesterol (40-60) mg/dL TSH, Ultra Sensitive (0.358-3.740) mIU/mL Specimen Type Urincc Urine Color Yellow Urine Appearance Clear Urine pH 5.5 (5.0-9.0) Ur Specific [place] <= 1.005 (1.005-1.030) Urine Protein Negative (NEGATIVE) mg/dL Urine Glucose (UA) Negative (NEGATIVE) mg/dL Urine Ketones Negative (NEGATIVE) mg/dL Urine Occult Blood Negative (NEGATIVE) Urine Nitrite Negative (NEGATIVE) Urine Bilirubin Negative (NEGATIVE) Urine Urobilinogen 0.2 (0.2-1.0) E.U./dL Ur Leukocyte Esterase Negative (NEGATIVE) Urine RBC 0-5 /HPF Urine WBC 0-5 /HPF Ur Epithelial Cells Rare /LPF Urine Bacteria Rare (NONE TO FEW) /HPF 04/27/19 04/27/19 04/27/19 Range/Units 06:57 06:57 06:57 WBC 10.4 H (4.0-10.2) K/uL RBC 4.95 (4.33-5.41) M/uL Hgb 16.0 (13.1-16.8) g/dL Hct 46.0 (39.0-49.0) % MCV 92.9 (84.0-98.0) fL MCH 32.3 (28.2-33.3) pg MCHC 34.8 (31.7-36.0) g/dL RDW 13.3 (11.2-14.1) % Plt Count 193 (150-350) K/uL Neut % (Auto) 61.5 (45.0-80.0) % Lymph % (Auto) 24.8 (10.0-50.0) % [place] % (Auto) 12.6 (2.0-14.0) % Eos % (Auto) 0.8 (0.0-5.0) % Baso % (Auto) 0.3 (0.0-2.0) % Neut # (Auto) 6.38 (1.40-7.00) K/uL Lymph # (Auto) 2.57 (0.50-3.50) K/uL [place] # (Auto) 1.31 H (0.00-1.00) K/uL Eos # (Auto) 0.08 (0.00-0.50) K/uL Baso # (Auto) 0.03 (0.00-0.20) K/uL PT (9.5-12.0) SEC INR APTT (21.0-31.3) SEC D-Dimer, Quantitative 325 (0-400) ng/mL Sodium 141 (136-145) mmol/L Potassium 3.7 (3.5-5.1) mmol/L Chloride 104 (98-107) mmol/L Carbon Dioxide 25.2 (21.0-32.0) mmol/L BUN 22 H (7-18) mg/dL Creatinine 1.75 H (0.51-1.17) mg/dL Est Cr Clr Drug Dosing 40.45 Estimated GFR (MDRD) 38 mL/min Glucose 85 (74-106) mg/dL Hemoglobin A1c (4.3-5.7) % Lactic Acid (0.4-2.0) mmol/L Uric Acid (2.6-7.2) mg/dL Calcium 8.9 (8.5-10.1) mg/dL Magnesium (1.8-2.4) mg/dL Total Bilirubin 2.2 H (0.2-1.0) mg/dL Direct Bilirubin (0.0-0.2) mg/dL Indirect Bilirubin mg/dL AST 20 (15-37) U/L ALT 25 (12-78) U/L Alkaline Phosphatase 73 (46-116) IU/L Creatine Kinase 53 (26-308) U/L Creatine Kinase Index 1.7 (0.0-2.5) % CK-MB (CK-2) 0.90 (0.00-3.60) ng/mL Troponin I 0.004 (0.000-0.056) ng/mL NT-Pro-B Natriuret Pep 1079 H (0-125) pg/mL Total Protein 6.9 (6.4-8.2) g/dL Albumin 3.6 (3.4-5.0) g/dL Triglycerides 108 (30-150) mg/dL Cholesterol 119 (100-200) mg/dL LDL Cholesterol, Calc 48 (0-100) mg/dL HDL Cholesterol 49 (40-60) mg/dL TSH, Ultra Sensitive (0.358-3.740) mIU/mL Specimen Type Urine Color Urine Appearance Urine pH (5.0-9.0) Ur Specific [place] (1.005-1.030) Urine Protein (NEGATIVE) mg/dL Urine Glucose (UA) (NEGATIVE) mg/dL Urine Ketones (NEGATIVE) mg/dL Urine Occult Blood (NEGATIVE) Urine Nitrite (NEGATIVE) Urine Bilirubin (NEGATIVE) Urine Urobilinogen (0.2-1.0) E.U./dL Ur Leukocyte Esterase (NEGATIVE) Urine RBC /HPF Urine WBC /HPF Ur Epithelial Cells /LPF Urine Bacteria (NONE TO FEW) /HPF 04/27/19 04/27/19 Range/Units 06:57 06:57 WBC (4.0-10.2) K/uL RBC (4.33-5.41) M/uL Hgb (13.1-16.8) g/dL Hct (39.0-49.0) % MCV (84.0-98.0) fL MCH (28.2-33.3) pg MCHC (31.7-36.0) g/dL RDW (11.2-14.1) % Plt Count (150-350) K/uL Neut % (Auto) (45.0-80.0) % Lymph % (Auto) (10.0-50.0) % [place] % (Auto) (2.0-14.0) % Eos % (Auto) (0.0-5.0) % Baso % (Auto) (0.0-2.0) % Neut # (Auto) (1.40-7.00) K/uL Lymph # (Auto) (0.50-3.50) K/uL [place] # (Auto) (0.00-1.00) K/uL Eos # (Auto) (0.00-0.50) K/uL Baso # (Auto) (0.00-0.20) K/uL PT (9.5-12.0) SEC INR APTT (21.0-31.3) SEC D-Dimer, Quantitative (0-400) ng/mL Sodium (136-145) mmol/L Potassium (3.5-5.1) mmol/L Chloride (98-107) mmol/L Carbon Dioxide (21.0-32.0) mmol/L BUN (7-18) mg/dL Creatinine (0.51-1.17) mg/dL Est Cr Clr Drug Dosing Estimated GFR (MDRD) mL/min Glucose (74-106) mg/dL Hemoglobin A1c 5.8 H (4.3-5.7) % Lactic Acid 1.0 (0.4-2.0) mmol/L Uric Acid (2.6-7.2) mg/dL Calcium (8.5-10.1) mg/dL Magnesium (1.8-2.4) mg/dL Total Bilirubin (0.2-1.0) mg/dL Direct Bilirubin (0.0-0.2) mg/dL Indirect Bilirubin mg/dL AST (15-37) U/L ALT (12-78) U/L Alkaline Phosphatase (46-116) IU/L Creatine Kinase (26-308) U/L Creatine Kinase Index (0.0-2.5) % CK-MB (CK-2) (0.00-3.60) ng/mL Troponin I (0.000-0.056) ng/mL NT-Pro-B Natriuret Pep (0-125) pg/mL Total Protein (6.4-8.2) g/dL Albumin (3.4-5.0) g/dL Triglycerides (30-150) mg/dL Cholesterol (100-200) mg/dL LDL Cholesterol, Calc (0-100) mg/dL HDL Cholesterol (40-60) mg/dL TSH, Ultra Sensitive (0.358-3.740) mIU/mL Specimen Type Urine Color Urine Appearance Urine pH (5.0-9.0) Ur Specific [place] (1.005-1.030) Urine Protein (NEGATIVE) mg/dL Urine Glucose (UA) (NEGATIVE) mg/dL Urine Ketones (NEGATIVE) mg/dL Urine Occult Blood (NEGATIVE) Urine Nitrite (NEGATIVE) Urine Bilirubin (NEGATIVE) Urine Urobilinogen (0.2-1.0) E.U./dL Ur Leukocyte Esterase (NEGATIVE) Urine RBC /HPF Urine WBC /HPF Ur Epithelial Cells /LPF Urine Bacteria (NONE TO FEW) /HPF Laboratory Tests 04/26/19 04/26/19 04/26/19 Range/Units 14:46 16:46 16:46 WBC 10.7 H (4.0-10.2) K/uL RBC 5.09 (4.33-5.41) M/uL Hgb 16.3 (13.1-16.8) g/dL Hct 47.2 (39.0-49.0) % MCV 92.7 D (84.0-98.0) fL MCH 32.0 (28.2-33.3) pg MCHC 34.5 (31.7-36.0) g/dL RDW 13.3 (11.2-14.1) % Plt Count 200 (150-350) K/uL Neut % (Auto) 68.8 (45.0-80.0) % Lymph % (Auto) 20.5 (10.0-50.0) % [place] % (Auto) 9.9 (2.0-14.0) % Eos % (Auto) 0.5 (0.0-5.0) % Baso % (Auto) 0.3 (0.0-2.0) % Neut # (Auto) 7.34 H (1.40-7.00) K/uL Lymph # (Auto) 2.18 (0.50-3.50) K/uL [place] # (Auto) 1.06 H (0.00-1.00) K/uL Eos # (Auto) 0.05 (0.00-0.50) K/uL Baso # (Auto) 0.03 (0.00-0.20) K/uL PT 11.0 (9.5-12.0) SEC INR 1.0 APTT 26.8 (21.0-31.3) SEC D-Dimer, Quantitative (0-400) ng/mL Sodium (136-145) mmol/L Potassium (3.5-5.1) mmol/L Chloride (98-107) mmol/L Carbon Dioxide (21.0-32.0) mmol/L BUN (7-18) mg/dL Creatinine (0.51-1.17) mg/dL Est Cr Clr Drug Dosing Estimated GFR (MDRD) mL/min Glucose (74-106) mg/dL Hemoglobin A1c (4.3-5.7) % Lactic Acid (0.4-2.0) mmol/L Uric Acid (2.6-7.2) mg/dL Calcium (8.5-10.1) mg/dL Magnesium (1.8-2.4) mg/dL Total Bilirubin 1.8 H (0.2-1.0) mg/dL Direct Bilirubin 0.3 H (0.0-0.2) mg/dL Indirect Bilirubin 1.5 mg/dL AST (15-37) U/L ALT (12-78) U/L Alkaline Phosphatase (46-116) IU/L Creatine Kinase (26-308) U/L Creatine Kinase Index (0.0-2.5) % CK-MB (CK-2) (0.00-3.60) ng/mL Troponin I (0.000-0.056) ng/mL NT-Pro-B Natriuret Pep (0-125) pg/mL Total Protein (6.4-8.2) g/dL Albumin (3.4-5.0) g/dL Triglycerides (30-150) mg/dL Cholesterol (100-200) mg/dL LDL Cholesterol, Calc (0-100) mg/dL HDL Cholesterol (40-60) mg/dL TSH, Ultra Sensitive (0.358-3.740) mIU/mL Specimen Type Urine Color Urine Appearance Urine pH (5.0-9.0) Ur Specific [place] (1.005-1.030) Urine Protein (NEGATIVE) mg/dL Urine Glucose (UA) (NEGATIVE) mg/dL Urine Ketones (NEGATIVE) mg/dL Urine Occult Blood (NEGATIVE) Urine Nitrite (NEGATIVE) Urine Bilirubin (NEGATIVE) Urine Urobilinogen (0.2-1.0) E.U./dL Ur Leukocyte Esterase (NEGATIVE) Urine RBC /HPF Urine WBC /HPF Ur Epithelial Cells /LPF Urine Bacteria (NONE TO FEW) /HPF 04/26/19 04/26/19 04/26/19 Range/Units 16:46 16:46 16:46 WBC (4.0-10.2) K/uL RBC (4.33-5.41) M/uL Hgb (13.1-16.8) g/dL Hct (39.0-49.0) % MCV (84.0-98.0) fL MCH (28.2-33.3) pg MCHC (31.7-36.0) g/dL RDW (11.2-14.1) % Plt Count (150-350) K/uL Neut % (Auto) (45.0-80.0) % Lymph % (Auto) (10.0-50.0) % [place] % (Auto) (2.0-14.0) % Eos % (Auto) (0.0-5.0) % Baso % (Auto) (0.0-2.0) % Neut # (Auto) (1.40-7.00) K/uL Lymph # (Auto) (0.50-3.50) K/uL [place] # (Auto) (0.00-1.00) K/uL Eos # (Auto) (0.00-0.50) K/uL Baso # (Auto) (0.00-0.20) K/uL PT (9.5-12.0) SEC INR APTT (21.0-31.3) SEC D-Dimer, Quantitative 661 H (0-400) ng/mL Sodium 137 (136-145) mmol/L Potassium 4.5 (3.5-5.1) mmol/L Chloride 101 (98-107) mmol/L Carbon Dioxide 24.0 (21.0-32.0) mmol/L BUN 24 H (7-18) mg/dL Creatinine 1.62 H (0.51-1.17) mg/dL Est Cr Clr Drug Dosing TNP Estimated GFR (MDRD) 41 mL/min Glucose 96 (74-106) mg/dL Hemoglobin A1c (4.3-5.7) % Lactic Acid 2.1 H (0.4-2.0) mmol/L Uric Acid 7.3 H (2.6-7.2) mg/dL Calcium 9.1 (8.5-10.1) mg/dL Magnesium 1.9 (1.8-2.4) mg/dL Total Bilirubin 1.8 H (0.2-1.0) mg/dL Direct Bilirubin (0.0-0.2) mg/dL Indirect Bilirubin mg/dL AST 20 (15-37) U/L ALT 28 (12-78) U/L Alkaline Phosphatase 71 (46-116) IU/L Creatine Kinase 72 (26-308) U/L Creatine Kinase Index 1.7 (0.0-2.5) % CK-MB (CK-2) 1.20 (0.00-3.60) ng/mL Troponin I 0.008 (0.000-0.056) ng/mL NT-Pro-B Natriuret Pep 996 H (0-125) pg/mL Total Protein 7.3 (6.4-8.2) g/dL Albumin 4.0 (3.4-5.0) g/dL Triglycerides (30-150) mg/dL Cholesterol (100-200) mg/dL LDL Cholesterol, Calc (0-100) mg/dL HDL Cholesterol (40-60) mg/dL TSH, Ultra Sensitive 2.055 (0.358-3.740) mIU/mL Specimen Type Urine Color Urine Appearance Urine pH (5.0-9.0) Ur Specific [place] (1.005-1.030) Urine Protein (NEGATIVE) mg/dL Urine Glucose (UA) (NEGATIVE) mg/dL Urine Ketones (NEGATIVE) mg/dL Urine Occult Blood (NEGATIVE) Urine Nitrite (NEGATIVE) Urine Bilirubin (NEGATIVE) Urine Urobilinogen (0.2-1.0) E.U./dL Ur Leukocyte Esterase (NEGATIVE) Urine RBC /HPF Urine WBC /HPF Ur Epithelial Cells /LPF Urine Bacteria (NONE TO FEW) /HPF 04/26/19 04/26/19 04/26/19 Range/Units 16:50 20:45 20:45 WBC (4.0-10.2) K/uL RBC (4.33-5.41) M/uL Hgb (13.1-16.8) g/dL Hct (39.0-49.0) % MCV (84.0-98.0) fL MCH (28.2-33.3) pg MCHC (31.7-36.0) g/dL RDW (11.2-14.1) % Plt Count (150-350) K/uL Neut % (Auto) (45.0-80.0) % Lymph % (Auto) (10.0-50.0) % [place] % (Auto) (2.0-14.0) % Eos % (Auto) (0.0-5.0) % Baso % (Auto) (0.0-2.0) % Neut # (Auto) (1.40-7.00) K/uL Lymph # (Auto) (0.50-3.50) K/uL [place] # (Auto) (0.00-1.00) K/uL Eos # (Auto) (0.00-0.50) K/uL Baso # (Auto) (0.00-0.20) K/uL PT (9.5-12.0) SEC INR APTT (21.0-31.3) SEC D-Dimer, Quantitative (0-400) ng/mL Sodium (136-145) mmol/L Potassium (3.5-5.1) mmol/L Chloride (98-107) mmol/L Carbon Dioxide (21.0-32.0) mmol/L BUN (7-18) mg/dL Creatinine (0.51-1.17) mg/dL Est Cr Clr Drug Dosing Estimated GFR (MDRD) mL/min Glucose (74-106) mg/dL Hemoglobin A1c (4.3-5.7) % Lactic Acid 1.3 (0.4-2.0) mmol/L Uric Acid (2.6-7.2) mg/dL Calcium (8.5-10.1) mg/dL Magnesium (1.8-2.4) mg/dL Total Bilirubin (0.2-1.0) mg/dL Direct Bilirubin (0.0-0.2) mg/dL Indirect Bilirubin mg/dL AST (15-37) U/L ALT (12-78) U/L Alkaline Phosphatase (46-116) IU/L Creatine Kinase 69 (26-308) U/L Creatine Kinase Index 1.6 (0.0-2.5) % CK-MB (CK-2) 1.10 (0.00-3.60) ng/mL Troponin I 0.001 (0.000-0.056) ng/mL NT-Pro-B Natriuret Pep (0-125) pg/mL Total Protein (6.4-8.2) g/dL Albumin (3.4-5.0) g/dL Triglycerides (30-150) mg/dL Cholesterol (100-200) mg/dL LDL Cholesterol, Calc (0-100) mg/dL HDL Cholesterol (40-60) mg/dL TSH, Ultra Sensitive (0.358-3.740) mIU/mL Specimen Type [place] Urine Color Yellow Urine Appearance Clear Urine pH 5.5 (5.0-9.0) Ur Specific [place] <= 1.005 (1.005-1.030) Urine Protein Negative (NEGATIVE) mg/dL Urine Glucose (UA) Negative (NEGATIVE) mg/dL Urine Ketones Negative (NEGATIVE) mg/dL Urine Occult Blood Negative (NEGATIVE) Urine Nitrite Negative (NEGATIVE) Urine Bilirubin Negative (NEGATIVE) Urine Urobilinogen 0.2 (0.2-1.0) E.U./dL Ur Leukocyte Esterase Negative (NEGATIVE) Urine RBC 0-5 /HPF Urine WBC 0-5 /HPF Ur Epithelial Cells Rare /LPF Urine Bacteria Rare (NONE TO FEW) /HPF 04/27/19 04/27/19 04/27/19 Range/Units 06:57 06:57 06:57 WBC 10.4 H (4.0-10.2) K/uL RBC 4.95 (4.33-5.41) M/uL Hgb 16.0 (13.1-16.8) g/dL Hct 46.0 (39.0-49.0) % MCV 92.9 (84.0-98.0) fL MCH 32.3 (28.2-33.3) pg MCHC 34.8 (31.7-36.0) g/dL RDW 13.3 (11.2-14.1) % Plt Count 193 (150-350) K/uL Neut % (Auto) 61.5 (45.0-80.0) % Lymph % (Auto) 24.8 (10.0-50.0) % [place] % (Auto) 12.6 (2.0-14.0) % Eos % (Auto) 0.8 (0.0-5.0) % Baso % (Auto) 0.3 (0.0-2.0) % Neut # (Auto) 6.38 (1.40-7.00) K/uL Lymph # (Auto) 2.57 (0.50-3.50) K/uL [place] # (Auto) 1.31 H (0.00-1.00) K/uL Eos # (Auto) 0.08 (0.00-0.50) K/uL Baso # (Auto) 0.03 (0.00-0.20) K/uL PT (9.5-12.0) SEC INR APTT (21.0-31.3) SEC D-Dimer, Quantitative 325 (0-400) ng/mL Sodium 141 (136-145) mmol/L Potassium 3.7 (3.5-5.1) mmol/L Chloride 104 (98-107) mmol/L Carbon Dioxide 25.2 (21.0-32.0) mmol/L BUN 22 H (7-18) mg/dL Creatinine 1.75 H (0.51-1.17) mg/dL Est Cr Clr Drug Dosing 40.45 Estimated GFR (MDRD) 38 mL/min Glucose 85 (74-106) mg/dL Hemoglobin A1c (4.3-5.7) % Lactic Acid (0.4-2.0) mmol/L Uric Acid (2.6-7.2) mg/dL Calcium 8.9 (8.5-10.1) mg/dL Magnesium (1.8-2.4) mg/dL Total Bilirubin 2.2 H (0.2-1.0) mg/dL Direct Bilirubin (0.0-0.2) mg/dL Indirect Bilirubin mg/dL AST 20 (15-37) U/L ALT 25 (12-78) U/L Alkaline Phosphatase 73 (46-116) IU/L Creatine Kinase 53 (26-308) U/L Creatine Kinase Index 1.7 (0.0-2.5) % CK-MB (CK-2) 0.90 (0.00-3.60) ng/mL Troponin I 0.004 (0.000-0.056) ng/mL NT-Pro-B Natriuret Pep 1079 H (0-125) pg/mL Total Protein 6.9 (6.4-8.2) g/dL Albumin 3.6 (3.4-5.0) g/dL Triglycerides 108 (30-150) mg/dL Cholesterol 119 (100-200) mg/dL LDL Cholesterol, Calc 48 (0-100) mg/dL HDL Cholesterol 49 (40-60) mg/dL TSH, Ultra Sensitive (0.358-3.740) mIU/mL Specimen Type Urine Color Urine Appearance Urine pH (5.0-9.0) Ur Specific [place] (1.005-1.030) Urine Protein (NEGATIVE) mg/dL Urine Glucose (UA) (NEGATIVE) mg/dL Urine Ketones (NEGATIVE) mg/dL Urine Occult Blood (NEGATIVE) Urine Nitrite (NEGATIVE) Urine Bilirubin (NEGATIVE) Urine Urobilinogen (0.2-1.0) E.U./dL Ur Leukocyte Esterase (NEGATIVE) Urine RBC /HPF Urine WBC /HPF Ur Epithelial Cells /LPF Urine Bacteria (NONE TO FEW) /HPF 04/27/19 04/27/19 Range/Units 06:57 06:57 WBC (4.0-10.2) K/uL RBC (4.33-5.41) M/uL Hgb (13.1-16.8) g/dL Hct (39.0-49.0) % MCV (84.0-98.0) fL MCH (28.2-33.3) pg MCHC (31.7-36.0) g/dL RDW (11.2-14.1) % Plt Count (150-350) K/uL Neut % (Auto) (45.0-80.0) % Lymph % (Auto) (10.0-50.0) % [place] % (Auto) (2.0-14.0) % Eos % (Auto) (0.0-5.0) % Baso % (Auto) (0.0-2.0) % Neut # (Auto) (1.40-7.00) K/uL Lymph # (Auto) (0.50-3.50) K/uL [place] # (Auto) (0.00-1.00) K/uL Eos # (Auto) (0.00-0.50) K/uL Baso # (Auto) (0.00-0.20) K/uL PT (9.5-12.0) SEC INR APTT (21.0-31.3) SEC D-Dimer, Quantitative (0-400) ng/mL Sodium (136-145) mmol/L Potassium (3.5-5.1) mmol/L Chloride (98-107) mmol/L Carbon Dioxide (21.0-32.0) mmol/L BUN (7-18) mg/dL Creatinine (0.51-1.17) mg/dL Est Cr Clr Drug Dosing Estimated GFR (MDRD) mL/min Glucose (74-106) mg/dL Hemoglobin A1c 5.8 H (4.3-5.7) % Lactic Acid 1.0 (0.4-2.0) mmol/L Uric Acid (2.6-7.2) mg/dL Calcium (8.5-10.1) mg/dL Magnesium (1.8-2.4) mg/dL Total Bilirubin (0.2-1.0) mg/dL Direct Bilirubin (0.0-0.2) mg/dL Indirect Bilirubin mg/dL AST (15-37) U/L ALT (12-78) U/L Alkaline Phosphatase (46-116) IU/L Creatine Kinase (26-308) U/L Creatine Kinase Index (0.0-2.5) % CK-MB (CK-2) (0.00-3.60) ng/mL Troponin I (0.000-0.056) ng/mL NT-Pro-B Natriuret Pep (0-125) pg/mL Total Protein (6.4-8.2) g/dL Albumin (3.4-5.0) g/dL Triglycerides (30-150) mg/dL Cholesterol (100-200) mg/dL LDL Cholesterol, Calc (0-100) mg/dL HDL Cholesterol (40-60) mg/dL TSH, Ultra Sensitive (0.358-3.740) mIU/mL Specimen Type Urine Color Urine Appearance Urine pH (5.0-9.0) Ur Specific [place] (1.005-1.030) Urine Protein (NEGATIVE) mg/dL Urine Glucose (UA) (NEGATIVE) mg/dL Urine Ketones (NEGATIVE) mg/dL Urine Occult Blood (NEGATIVE) Urine Nitrite (NEGATIVE) Urine Bilirubin (NEGATIVE) Urine Urobilinogen (0.2-1.0) E.U./dL Ur Leukocyte Esterase (NEGATIVE) Urine RBC /HPF Urine WBC /HPF Ur Epithelial Cells /LPF Urine Bacteria (NONE TO FEW) /HPF [place] Results - Last 24 hrs: Microbiology 04/26/19 16:50 Urine Culture - Preliminary Urine, Clean Catch NO GROWTH AFTER 1 DAY Med Orders - Current: Current Medications Acetaminophen (Tylenol) 650 mg PO Q4H PRN PRN Reason: Pain Aspirin (Halfprin) 81 mg PO DAILY [facility] Last Admin: 04/27/19 08:14 Dose: 81 mg Cholecalciferol (Vitamin D3) 25 mcg PO BEDTIME [facility] Last Admin: 04/26/19 19:53 Dose: 25 mcg Enoxaparin Sodium (Lovenox) 60 mg SUBCUT Q24H [facility] Last Admin: 04/26/19 19:55 Dose: 60 mg Furosemide (Lasix) 40 mg IVPUSH Q8H [facility] Last Admin: 04/27/19 03:30 Dose: Not Given Gabapentin (Neurontin) 300 mg PO BEDTIME [facility] Last Admin: 04/26/19 19:53 Dose: 300 mg Lorazepam (Ativan) 1 mg PO Q12HR PRN PRN Reason: Anxiety Last Admin: 04/26/19 23:20 Dose: 1 mg Losartan Potassium (Cozaar) 25 mg PO BID [facility] Last Admin: 04/27/19 08:12 Dose: 50 mg Potassium Chloride (Klor-Con M20) 20 meq PO TID [facility] Last Admin: 04/27/19 08:14 Dose: 20 meq Rosuvastatin Calcium (Crestor) 10 mg PO BEDTIME [facility] Last Admin: 04/26/19 19:53 Dose: 10 mg Sodium Chloride (Saline Flush) 10 ml FLUSH ASDIRECTED PRN PRN Reason: Keep Vein Open Last Admin: 04/26/19 19:57 Dose: 10 ml Sodium Chloride (Saline Flush) 10 ml FLUSH Q12HR PRN PRN Reason: Keep Vein Open Terazosin HCl (Hytrin) 5 mg PO BEDTIME [facility] Last Admin: 04/26/19 19:53 Dose: 5 mg Discontinued Medications Amlodipine Besylate (Norvasc) 10 mg PO DAILY [facility] Aspirin (Aspirin) 324 mg CHEW ONETIME ONE Stop: 04/26/19 16:25 Last Admin: 04/26/19 16:48 Dose: 324 mg Famotidine (Pepcid) 40 mg IVPUSH ONETIME ONE Stop: 04/26/19 16:25 Last Admin: 04/26/19 16:57 Dose: 40 mg Losartan Potassium (Cozaar) 25 mg PO DAILY [facility] Metoprolol Succinate (Toprol Xl) 50 mg PO DAILY [facility] Ticagrelor (Brilinta) 180 mg PO ONETIME ONE Stop: 04/26/19 16:25 Last Admin: 04/26/19 16:49 Dose: 180 mg - Exam Quality Assessment: Reports: DVT Prophylaxis (Subcutaneous Lovenox). Denies: Supplemental Oxygen, Central Line/PICC, Urine Catheter, Skin Breakdown, Restraints General: Reports: Alert, Oriented, Cooperative, No Acute Distress HEENT: Reports: Pupils Equal, Pupils Reactive, EOMI, Mucous Membr. Moist/[place]. Denies: Scleral Icterus Neck: Reports: Supple, Trachea Midline, No JVD, No Thyromegaly, Carotid Bruit ( Mild bilateral carotid bruits). Denies: Lymphadenopathy Lungs: Reports: Normal Respiratory Effort, Rales (Mild bilateral basilar). Denies: Rhonchi, Rub, Wheezing Cardiovascular: Reports: No Murmurs, Irregular Rhythm (PACs, PVCs, etc. by monitoring engineer as above), Bradycardia (Intermittent moderate). Denies: Gallops , Rubs GI/Abdominal Exam: Normal Bowel Sounds, Soft, Non-Tender, No Organomegaly, No Distention, No Abnormal Bruit, No Mass, Pelvis Stable, Other (Obese). No: Guarding (Male) Exam: Deferred Rectal (Males) Exam: Deferred Back Exam: Reports: Normal Inspection, Full Range of Motion, Other (Mild kyphosis). Denies: CVA Tenderness (L), CVA Tenderness (R), Muscle Spasm Extremities: Normal Inspection, Normal Range of Motion, Non-Tender, No Pedal Edema, Normal Capillary Refill. No: Micky's Sign Skin: Reports: Warm, Dry, Intact, Ecchymosis (Mild that Lovenox sites) Neurological: Reports: No New Focal Deficit Psy/Mental Status: Reports: Alert, Anxious (Moderate). Denies: Depressed ( Borderline), Agitated, Hallucinations, Withdrawal Symptoms EKG INTERPRETATION EKG Date: 04/27/19 Time: 09:13 Rhythm: Other (Borderline bradycardia with PVCs) Rate (Beats/Min): 59 [place]: Normal (Neutral cardiac axis) P-Wave: Present QRS: RBBB (QRS interval of 0.16 seconds representing a stable complete right bundle branch block with T-wave inversion in lead V1) ST-T: Normal QT: Normal ME/PQ Interval: 0.22 seconds representing a stable first degree AV block Comparison: No Change (On 04/26/19) EKG Interpretation Comments: 1. No acute ischemic changes 2. Borderline bradycardia 3. Complete right bundle branch block 4. First-degree AV block 5. PVCs
== END 2019-04-27 10:00 ==
LOC: LL.ED 16:22 → LL.MS 18:15 → UNDOADMOB 18:15 → INTOOBSV 18:15 → UNDODISOB 04-27 10:00
PROVIDERS: ADMIT Family Medicine; ATTEND Family Medicine
DX: I11.0 Hypertensive heart disease with heart failure (principal); I50.43 Acute on chronic combined systolic (congestive) and diastolic (congestive) heart failure; R79.89 Other specified abnormal findings of blood chemistry; I49.3 Ventricular premature depolarization; J43.1 Panlobular emphysema; E80.6 Other disorders of bilirubin metabolism; E78.5 Hyperlipidemia, unspecified; E87.2 Acidosis; M15.0 Primary generalized (osteo)arthritis; N28.9 Disorder of kidney and ureter, unspecified; F41.8 Other specified anxiety disorders; E78.00 Pure hypercholesterolemia, unspecified; K21.9 Gastro-esophageal reflux disease without esophagitis; E66.9 Obesity, unspecified; Z68.38 Body mass index [BMI] 38.0-38.9, adult; Z79.899 Other long term (current) drug therapy; Z79.82 Long term (current) use of aspirin; Z88.1 Allergy status to other antibiotic agents; Z87.891 Personal history of nicotine dependence
CPT/HCPCS: 36415; 71045; 80053; 80061; 81001; 82247; 82248; 82550; 82553; 83036; 83605; 83735; 83880; 84443; 84484; 84550; 85025; 85379; 85610; 85730; 87086; 93005; 96374; 99285-25; A9270-GY; J1650; J1940; J3490

== ENCOUNTER 2025-06-20 18:49 | Emergency (ER) | payer MEDICARE, OTHER ==
[2025-06-20 19:45] VITALS: BP 162/76; PULSE 56
[2025-06-20] MEDS: Bacitracin Oint 1 GM U/D Packet TOP ONE (19:52)
== END 2025-06-20 20:36 | disposition home or self-care (01) ==
LOC: LL.ED 18:49
DX: S16.1XXA Strain of muscle, fascia and tendon at neck level, initial encounter (principal); I13.0 Hypertensive heart and chronic kidney disease with heart failure and stage 1 through stage 4 chronic kidney disease, or unspecified chronic kidney disease; I50.9 Heart failure, unspecified; N18.9 Chronic kidney disease, unspecified; M19.90 Unspecified osteoarthritis, unspecified site; E66.9 Obesity, unspecified; Z88.8 Allergy status to other drugs, medicaments and biological substances; Z79.82 Long term (current) use of aspirin; Z79.899 Other long term (current) drug therapy; Z90.49 Acquired absence of other specified parts of digestive tract; Z87.891 Personal history of nicotine dependence; W01.198A Fall on same level from slipping, tripping and stumbling with subsequent striking against other object, initial encounter
CPT/HCPCS: 70450; 72125; 73030-RT; 99284; A9270-GY